=== PATIENT | female | born 1955 | race Caucasian/White ===

== ENCOUNTER 2018-05-11 13:11 | Outpatient (CLI) | payer MEDICARE, BC ==
--- NOTE | 2018-05-11 14:21 | ULT ---
LIMITED LEFT BREAST ULTRASOUND: Date: 05-11-18 Provided Clinical History: Left breast discharge. FINDINGS: Limited sonographic interrogation of the left breast was performed in the retroareolar region. No rosa dence for dilated ducts or retroareolar mass. IMPRESSION: No sonographic abnormalities are evident to explain the patient's left breast discharge. Negative arthur ging findings should not preclude further investigation of a clinically suspicious symptom. The patie nt was referred by to her physician. POS: [facility]
== END 2018-05-11 13:12 | disposition home or self-care (01) ==
LOC: BICMAMMO 13:11
PROVIDERS: ATTEND Family Medicine
DX: N64.52 Nipple discharge (principal)
CPT/HCPCS: 76642; 77065; G0279